=== PATIENT | male | born 1995 ===

== ENCOUNTER 2021-09-15 15:02 | Outpatient (CLI) | payer BC | END 2021-09-15 15:03 | disposition home or self-care (01) | LOC: LABHHL 15:02 | PROVIDERS: ATTEND Otolaryngology Otology & Neurotology | DX: J32.0 Chronic maxillary sinusitis (principal); R51.9 Headache, unspecified; J34.2 Deviated nasal septum; J32.2 Chronic ethmoidal sinusitis | CPT/HCPCS: 88305; 88311 ==